=== PATIENT | female | born 1985 | race African-American/Black ===

== ENCOUNTER 2017-10-11 16:57 | Emergency (ER) | payer SELFPAY ==
[2017-10-11 17:18] LABS: URINE HCG POC HCG NEGATIVE (Negative)
== END 2017-10-11 18:47 | disposition home or self-care (01) ==
LOC: ER 16:57
DX: N93.8 Other specified abnormal uterine and vaginal bleeding (principal)
CPT/HCPCS: 76830; 76856; 81025; 99284-25

== ENCOUNTER → 2019-10-17 | Outpatient (CLI) | payer BC ==
[2017-10-11 17:08] VITALS: BP 167/103
--- NOTE | 2019-10-17 13:02 | KCIC ---
EXAM: Pelvic sonogram. HISTORY: Pain. TECHNIQUE: Transabdominal and transvaginal sonographic imaging of the pelvis was performed. COMPARISON: 10/11/2017. FINDINGS: The uterus is normal in size. The endometrium measures 3.9 mm in thickness. The ovaries are normal in size and demonstrate normal blood flow. There are multiple ovarian follicles with a dominant right ovarian follicle/follicular cyst measuring 1.7 cm. There is a suspected hemorrhagic cyst within the right ovary measuring 4.1 cm. There is a small amount of fluid within the right adnexa and posterior cul-de-sac. IMPRESSION: 1. 4.1 cm suspected hemorrhagic right ovarian cyst. Follow-up can be performed to confirm resolution. There is also a 1.7 cm dominant right ovarian follicle/likely cyst. 2. Small amount of nonspecific right adnexal and cul-de-sac free fluid. Electronically signed by: Tammy Valente MD (10/17/2019 12:59 PM) [id number]
== END | disposition home or self-care (01) ==
LOC: KCIC US 08:47
PROVIDERS: ATTEND Nurse Practitioner Women's Health
DX: N83.8 Other noninflammatory disorders of ovary, fallopian tube and broad ligament (principal)
CPT/HCPCS: 76830; 76856